=== PATIENT | male | born 1965 | race Caucasian/White ===

== ENCOUNTER 2024-02-02 15:17 | Outpatient (CLI) | payer OTHER, SELFPAY ==
--- NOTE | 2024-02-02 | CRLHL7_ITS ---
For Patients: As a result of the Cures Act, medical imaging exams and procedure reports are released immediately into your electronic medical record. You may view this report before your referring provider. If you have questions, please contact your health care provider. INDICATION: Pre MRI screen for metallic foreign body. COMPARISON: none TECHNIQUE: AP vazquez view of the orbits FINDINGS: There is no evidence of a metallic foreign body over either orbit. The paranasal sinuses are clear IMPRESSION: No evidence of metallic foreign body. Dictated by Chilo Sanabria MD @ 02/03/2024 12:21:40 PM (Electronically Signed)
--- NOTE | 2024-02-02 15:30 | CRLHL7_ITS ---
For Patients: As a result of the Century Cures Act, medical imaging exams and procedure reports are released immediately into your electronic medical record. You may view this report before your referring provider. If you have questions, please contact your health care provider. INDICATION: Low back pain. TECHNIQUE: Multisequence multiplanar MRI of the lumbar spine without the use of intravenous contrast. COMPARISON: Correlated with lumbar spine radiographs dated 01/28/2024. FINDINGS: Minimal grade 1 anterolisthesis at L4-L5. Vertebral body heights are maintained. No T1 hypointense infiltrative lesion is identified. There is multilevel disc desiccation and height loss with Modic type 2 degenerative endplate signal at L5-S1. The conus medullaris terminates normally at the L1-L2 level. T12-L1, L1-L2, and L2-L3: Shallow symmetric disc bulging. No significant spinal canal or neural foraminal stenosis L3-L4: Left subarticular and foraminal disc extrusion exhibiting cranial subligamentous migration (series 2, image 10). Mild narrowing of the left lateral recess with likely abutment of the traversing L4 nerve root. Moderate left neural foraminal narrowing with likely impingement of the exiting L3 nerve root. L4-L5: Advanced facet joint hypertrophy with anterolisthesis and disc bulge/uncovering. Mild narrowing of the right lateral recess without high-grade spinal canal stenosis. Mild right and no significant left neural foraminal narrowing. L5-S1: Symmetric disc bulge. Mild facet joint arthrosis. No significant spinal canal stenosis or high-grade neural foraminal narrowing. IMPRESSION: 1. Minimal grade 1 anterolisthesis at L4-L5. 2. Multilevel disc desiccation and height loss with Modic type 2 degenerative endplate signal at L5-S1. 3. At L3-L4, left subarticular/foraminal disc extrusion impinging the exiting L3 nerve root and likely abutting the traversing L4 nerve root. 4. At L4-L5, mild narrowing of the right lateral recess and right neural foramen. Dictated by Aryan Marin MD @ 02/06/2024 7:34:09 AM (Electronically Signed)
== END 2024-02-02 15:18 | disposition home or self-care (01) ==
PROVIDERS: Visit Provider Physician Assistant Medical
DX: M54.50 Low back pain, unspecified (principal); M51.27 Other intervertebral disc displacement, lumbosacral region; M79.605 Pain in left leg
CPT/HCPCS: 70030; 72148

== ENCOUNTER 2024-04-10 07:30 | Outpatient (RCR) | payer OTHER, SELFPAY | END 2024-08-08 23:59 | disposition home or self-care (01) | PROVIDERS: PCP Nurse Practitioner Family; Visit Provider Family Medicine | DX: M54.50 Low back pain, unspecified (principal); M79.605 Pain in left leg; M54.16 Radiculopathy, lumbar region; Z51.89 Encounter for other specified aftercare | CPT/HCPCS: 97012; 97110; 97161 ==